=== PATIENT | female | born 1995 | race Caucasian/White ===

== ENCOUNTER 2017-02-10 01:40 | Emergency (ER) | payer MEDICAID ==
[~2017-02-10] VITALS: Ht 160 cm; Wt 75.0 kg
[~2017-02-10 01:40] MED LIST: CHOL2000 PO; DOXE3TAB3 PO; LACO50TA PO; LAMO200T49 PO; LAMO300T2 PO; LEVE500T53 PO; LITH450T PO; MELO7.5T31 PO; NITR100C56 PO; NORE0.357 PO; OMEG1CAP23 PO; TAUR500C PO; TRAZ100T15 PO
[2017-02-10 02:35] LABS: PATH.CAST-FLAG NOT PRESENT; SPERM-FLAG NOT PRESENT; SRC-FLAG NOT PRESENT; XTAL-FLAG NOT PRESENT; YLC-FLAG NOT PRESENT
[2017-02-10 02:36] LABS: ASPARTATE AMINO TRANSFERASE 12 U/L (15-37); BLOOD UREA NITROGEN 12 mg/dL (7-18)
[2017-02-10 03:24] LABS: HEMATOCRIT 41.3 % (34.6-47.8); HEMOGLOBIN 13.8 g/dL (11.7-16.4); WHITE BLOOD COUNT 7.5 x10^3/uL (3.4-10)
[2017-02-10 03:26] VITALS: BP 124/60
== END 2017-02-10 03:54 | disposition home or self-care (01) ==
LOC: ED 02:02
DX: F51.01 Primary insomnia (principal)
CPT/HCPCS: 36415; 80053; 81001; 84703; 85025; 87086; 99284

== ENCOUNTER 2017-06-30 04:29 | Inpatient (IN) | payer MEDICAID ==
[~2017-06-30] VITALS: Ht 167.6 cm; Wt 86.8 kg
[2017-06-30] MEDS ORDERED: SUVO10TA PO (05:21)
[2017-06-30] MEDS ORDERED: OXCA300T PO (05:22)
[2017-06-30] MEDS ORDERED: L-NO1TBD18 PO (05:23)
[2017-06-30] MEDS ORDERED: LORazepam 2 MG/ML, 1ML ONE (05:57)
[2017-06-30] MEDS ORDERED: LORazepam 2 MG/ML, 1ML IVPush ONE (06:30)
[2017-06-30] MEDS ORDERED: SODIUM CHLORIDE 0.9% 1,000 ML IV ONE (07:58)
[2017-06-30] MEDS ORDERED: PHENYTOIN SODIUM 1,500 MG in SODIUM CHLORIDE 0.9% 100 ML IV ONE (08:00)
[2017-06-30] MEDS ORDERED: SODIUM CHLORIDE FLUSH 10ML SYR IVF ONE (08:00)
[2017-06-30] MEDS ORDERED: FILTER 0.22 MICRON IV ONE (08:30)
[2017-06-30 08:36] LABS: BASOPHILS # (AUTO) 0.03 x10^3/uL (0-0.1); BASOPHILS % (AUTO) 0 % (0-1); EOSINOPHILS # (AUTO) 0.06 x10^3/uL (0-0.4); EOSINOPHILS % (AUTO) 1 % (1-7); LYMPHOCYTES # (AUTO) 1.45 x10^3/uL (1-3.4); LYMPHOCYTES % (AUTO) 15 % (22-44); MD NO; MEAN CORPUSCULAR HGB CONC 34.3 g/dL (32.4-35.8); MEAN CORPUSCULAR VOLUME 90.5 fL (80-100); MEAN PLATELET VOLUME 7.3 fL (7.4-10.4); MONOCYTES # (AUTO) 0.63 x10^3/uL (0.2-0.8); MONOCYTES % (AUTO) 7 % (2-9); NEUTROPHILS # (AUTO) 7.41 x10^3/uL (1.8-6.8); NEUTROPHILS % (AUTO) 77 % (42-75); PLATELET COUNT 321 x10^3/uL (130-400); RED CELL DISTRIBUTION WIDTH 12.2 % (9.6-15.2)
[2017-06-30 08:40] LABS: ALANINE AMINOTRANSFERASE 25 U/L (12-78); ALBUMIN 3.6 g/dL (3.4-5.0); ANION GAP 9 mmol/L (5-15); CALCIUM 8.3 mg/dL (8.5-10.1); CHLORIDE 108 mmol/L (98-107); CREATININE 0.63 mg/dL (0.55-1.02); SALICYLATE LEVEL < 1.7 mg/dL (2.8-20.0)
[2017-06-30 08:45] LABS: ACETAMINOPHEN < 2 mcg/mL (10-30); ALKALINE PHOSPHATASE 82 U/L (45-117); BILIRUBIN,TOTAL 0.2 mg/dL (0.2-1.0); TOTAL PROTEIN 7.2 g/dL (6.4-8.2); TROPONIN I < 0.015 ng/mL (0.000-0.045)
[2017-06-30 10:01] LABS: HCG UR SG 1.019 (1.003-1.030); MICROSCOPIC AUTO
[2017-06-30 10:03] LABS: CULTURE INDICATED? YES
[2017-06-30 10:14] LABS: AMPHETAMINE SCREEN, URINE Negative (Negative); BARBITURATE SCREEN, URINE Negative (Negative); BENZODIAZEPINE SCREEN, URINE Negative (Negative); CANNABINOID SCREEN, URINE Negative (Negative); COCAINE SCREEN, URINE Negative (Negative); METHADONE SCREEN, URINE Negative (Negative); OPIATE SCREEN, URINE Negative (Negative)
[2017-06-30] MEDS ORDERED: ONDANSETRON 2MG/ML, 2ML IVPush PRN (10:30)
[2017-06-30] MEDS ORDERED: ACETAMINOPHEN 325 MG TABLET ONE (12:11)
[2017-06-30] MEDS ORDERED: ENOXAPARIN 40 MG/0.4 ML ONE (12:11)
[2017-06-30] MEDS: ENOXAPARIN 40 MG/0.4 ML SQ SCH (12:16)
[2017-06-30] MEDS: ACETAMINOPHEN 325 MG TABLET PO PRN ×2 (12:17→21:11)
[2017-06-30 14:54] VITALS: BP 112/71
[2017-06-30 15:57] VITALS: BP 106/68
[2017-06-30 18:45] VITALS: BP 115/73
[2017-06-30] MEDS ORDERED: SUVOREXANT HOMEMEDPO PRN (21:00)
[2017-06-30] MEDS: SODIUM CHLORIDE FLUSH 10ML SYR IVF SCH (21:11)
[2017-07-01] VITALS (10 sets, daily range): BP systolic 109–138; BP diastolic 65–82
[2017-07-01] MEDS ORDERED: IBUPROFEN 200 MG TABLET PO ONE (01:00)
[2017-07-01] MEDS: ACETAMINOPHEN 325 MG TABLET PO PRN ×2 (02:35→13:52)
[2017-07-01 05:52] LABS: BASOPHILS # (AUTO) 0.04 x10^3/uL (0-0.1); BASOPHILS % (AUTO) 1 % (0-1); EOSINOPHILS # (AUTO) 0.06 x10^3/uL (0-0.4); EOSINOPHILS % (AUTO) 1 % (1-7); LYMPHOCYTES # (AUTO) 1.65 x10^3/uL (1-3.4); LYMPHOCYTES % (AUTO) 22 % (22-44); MD NO; MEAN CORPUSCULAR HEMOGLOBIN 31.1 pg (27.0-34.8); MEAN CORPUSCULAR HGB CONC 34.1 g/dL (32.4-35.8); MEAN CORPUSCULAR VOLUME 91.3 fL (80-100); MEAN PLATELET VOLUME 7.3 fL (7.4-10.4); MONOCYTES # (AUTO) 0.66 x10^3/uL (0.2-0.8); MONOCYTES % (AUTO) 9 % (2-9); NEUTROPHILS # (AUTO) 5.25 x10^3/uL (1.8-6.8); NEUTROPHILS % (AUTO) 69 % (42-75); PLATELET COUNT 310 x10^3/uL (130-400); RED BLOOD COUNT 5.03 x10^6/uL (3.82-5.3); RED CELL DISTRIBUTION WIDTH 11.9 % (9.6-15.2)
[2017-07-01 06:07] LABS: ALBUMIN 3.7 g/dL (3.4-5.0); ANION GAP 9 mmol/L (5-15); CALCIUM 9.3 mg/dL (8.5-10.1); CHLORIDE 109 mmol/L (98-107)
[2017-07-01 06:12] LABS: ALANINE AMINOTRANSFERASE 27 U/L (12-78); ALKALINE PHOSPHATASE 93 U/L (45-117); BILIRUBIN,TOTAL 0.2 mg/dL (0.2-1.0); CREATININE 0.54 mg/dL (0.55-1.02); TOTAL PROTEIN 7.6 g/dL (6.4-8.2)
[2017-07-01] MEDS: E ESTRADIOL E ESTRAD HOMEMEDPO SCH (11:43)
[2017-07-01] MEDS: NORGEST HOMEMEDPO SCH (11:43)
[2017-07-01] MEDS: SODIUM CHLORIDE FLUSH 10ML SYR IVF SCH ×2 (11:43→23:53)
[2017-07-01] MEDS: ENOXAPARIN 40 MG/0.4 ML SQ SCH (11:49)
[2017-07-01] MEDS ORDERED: LACO100T PO (18:14)
[2017-07-01] MEDS ORDERED: LACO200T PO (18:14)
[2017-07-01] MEDS ORDERED: OXCARBAZEPINE 150 MG TABLET PO SCH (21:00)
[2017-07-02 00:18] VITALS: BP 115/74
[2017-07-02 00:51] VITALS: BP 115/72
[2017-07-02] MEDS: ACETAMINOPHEN 325 MG TABLET PO PRN ×2 (01:42→10:01)
[2017-07-02 07:32] VITALS: BP 109/64
[2017-07-02] MEDS ORDERED: OXCARBAZEPINE 150 MG TABLET PO SCH (09:00)
[2017-07-02] MEDS ORDERED: LACOSAMIDE 50 MG TABLET PO SCH ×2 (09:48→21:00)
[2017-07-02] MEDS: E ESTRADIOL E ESTRAD HOMEMEDPO SCH (10:02)
[2017-07-02] MEDS: NORGEST HOMEMEDPO SCH (10:02)
[2017-07-02] MEDS: ENOXAPARIN 40 MG/0.4 ML SQ SCH (10:03)
[2017-07-02] MEDS: SODIUM CHLORIDE FLUSH 10ML SYR IVF SCH (10:03)
[2017-07-02 14:35] VITALS: BP 129/77
== END 2017-07-02 17:10 | disposition home or self-care (01) | DRG 101 ==
LOC: ED 06:01 → 3NE 09:50 → UNDOADMOB 09:51 → INTOOBSV 09:51 → EDIP 09:51 → OBSVTOIN 09:52 → INTOOBSV 09:52 → EDIP 14:40 → 3NE 14:40
PROVIDERS: ADMIT Internal Medicine; ATTEND Internal Medicine
PROC: 0T9B70Z Drainage of Bladder with Drainage Device, Via Natural or Artificial Opening (ICD-10-PCS; principal; 2017-06-30)
DX: G40.901 Epilepsy, unspecified, not intractable, with status epilepticus (principal); F31.9 Bipolar disorder, unspecified; W18.39XA Other fall on same level, initial encounter; Z88.8 Allergy status to other drugs, medicaments and biological substances; Z91.018 Allergy to other foods; F51.3 Sleepwalking [somnambulism]; R32 Unspecified urinary incontinence; R62.7 Adult failure to thrive; Y93.89 Activity, other specified; Y92.89 Other specified places as the place of occurrence of the external cause; Y99.8 Other external cause status; S00.81XA Abrasion of other part of head, initial encounter; Z91.5 Personal history of self-harm
CPT/HCPCS: 36415; 70450; 71045; 72125; 80053; 80183; 80185; 80186; 80307; 80329; 80339; 81001; 81025; 82140; 83605; 84484; 85025; 87086; 93005; 95812; 95816; J1165; J1650; G0378; G0480; J2060; J7030

== ENCOUNTER 2017-07-02 22:52 | Emergency (ER) | payer MEDICAID ==
[~2017-07-02] VITALS: Ht 167.6 cm; Wt 82.7 kg
[~2017-07-02 22:52] MED LIST changes: +L-NO1TBD18 PO; +LACO100T PO; +LACO200T PO; +OXCA300T PO; +SUVO10TA PO
[2017-07-02 23:04] VITALS: BP 118/75
== END 2017-07-03 00:22 | disposition home or self-care (01) ==
LOC: ED 23:25
DX: L24.9 Irritant contact dermatitis, unspecified cause (principal); G40.909 Epilepsy, unspecified, not intractable, without status epilepticus; F31.9 Bipolar disorder, unspecified
CPT/HCPCS: 99283

== ENCOUNTER 2017-07-04 20:26 | Inpatient (IN) | payer MEDICAID ==
[~2017-07-04] VITALS: Ht 162.6 cm; Wt 80.3 kg
[2017-07-04 21:21] LABS: MICROSCOPIC INDICATED
[2017-07-04 21:22] LABS: BASOPHILS # (AUTO) 0.03 x10^3/uL (0-0.1); BASOPHILS % (AUTO) 0 % (0-1); EOSINOPHILS # (AUTO) 0.11 x10^3/uL (0-0.4); EOSINOPHILS % (AUTO) 2 % (1-7); LYMPHOCYTES # (AUTO) 2.24 x10^3/uL (1-3.4); LYMPHOCYTES % (AUTO) 35 % (22-44); MD NO; MEAN CORPUSCULAR HEMOGLOBIN 30.2 pg (27.0-34.8); MEAN CORPUSCULAR HGB CONC 33.4 g/dL (32.4-35.8); MEAN CORPUSCULAR VOLUME 90.6 fL (80-100); MEAN PLATELET VOLUME 7.1 fL (7.4-10.4); MONOCYTES # (AUTO) 0.53 x10^3/uL (0.2-0.8); MONOCYTES % (AUTO) 8 % (2-9); NEUTROPHILS # (AUTO) 3.52 x10^3/uL (1.8-6.8); NEUTROPHILS % (AUTO) 55 % (42-75); PLATELET COUNT 332 x10^3/uL (130-400); RED BLOOD COUNT 4.97 x10^6/uL (3.82-5.3); RED CELL DISTRIBUTION WIDTH 12.1 % (9.6-15.2)
[2017-07-04 21:31] LABS: ALBUMIN 3.7 g/dL (3.4-5.0); ANION GAP 8 mmol/L (5-15); CALCIUM 8.9 mg/dL (8.5-10.1); CHLORIDE 105 mmol/L (98-107); CREATININE 0.66 mg/dL (0.55-1.02)
[2017-07-04 21:32] LABS: SALICYLATE LEVEL < 1.7 mg/dL (2.8-20.0)
[2017-07-04 21:37] LABS: ACETAMINOPHEN < 2 mcg/mL (10-30)
[2017-07-04] MEDS ORDERED: ZIPRASIDONE 20 MG INJ IM ONE ×3 (21:56→23:52)
[2017-07-04 21:57] LABS: AMPHETAMINE SCREEN, URINE Negative (Negative); BARBITURATE SCREEN, URINE Negative (Negative); BENZODIAZEPINE SCREEN, URINE Negative (Negative); CANNABINOID SCREEN, URINE Negative (Negative); COCAINE SCREEN, URINE Negative (Negative); METHADONE SCREEN, URINE Negative (Negative); OPIATE SCREEN, URINE Negative (Negative)
[2017-07-04] MEDS ORDERED: SUVOREXANT PO SCH (23:30)
[2017-07-04] MEDS ORDERED: POLYETHYLENE GLYCOL 17 GM PACKET PO PRN (23:30)
[2017-07-04] MEDS ORDERED: POTASSIUM CHLORIDE 20 MEQ TAB.ER.PRT PO ONE (23:30)
[2017-07-04] MEDS: HEPARIN 5,000 UNITS/ML, 1ML SQ SCH (23:30)
[2017-07-04] MEDS ORDERED: ONDANSETRON ODT 4 MG PO PRN (23:30)
[2017-07-04] MEDS ORDERED: BISACODYL 10 MG SUPP PR PRN (23:30)
[2017-07-04] MEDS: SULFAMETH./TRIMETHOPRIM DS 800MG/160MG TABLET PO SCH (23:30)
[2017-07-04] MEDS ORDERED: SULFAMETH./TRIMETHOPRIM DS 800MG/160MG TABLET ONE (23:52)
[2017-07-04] MEDS ORDERED: DIPHENHYDRAMINE 50 MG/ML, 1ML ONE (23:58)
[2017-07-04] MEDS ORDERED: HALOPERIDOL 5 MG/ML ONE (23:58)
[2017-07-04] MEDS ORDERED: LORazepam 2 MG/ML, 1ML ONE (23:59)
[2017-07-05] MEDS: LACOSAMIDE 50 MG TABLET PO SCH ×3 (00:23→21:47)
[2017-07-05] MEDS ORDERED: HALOPERIDOL 5 MG/ML IM PRN (00:30)
[2017-07-05] MEDS ORDERED: LORazepam 2 MG/ML, 1ML IM PRN (00:30)
[2017-07-05] MEDS ORDERED: DIPHENHYDRAMINE 50 MG/ML, 1ML IM ONE (00:30)
[2017-07-05] MEDS ORDERED: HEPARIN 5,000 UNITS/ML, 1ML ONE (07:28)
[2017-07-05] MEDS: HEPARIN 5,000 UNITS/ML, 1ML SQ SCH ×3 (07:33→23:08)
[2017-07-05 07:50] LABS: BASOPHILS # (AUTO) 0.01 x10^3/uL (0-0.1); BASOPHILS % (AUTO) 0 % (0-1); EOSINOPHILS # (AUTO) 0.09 x10^3/uL (0-0.4); EOSINOPHILS % (AUTO) 2 % (1-7); LYMPHOCYTES # (AUTO) 1.68 x10^3/uL (1-3.4); LYMPHOCYTES % (AUTO) 28 % (22-44); MD NO; MEAN CORPUSCULAR HEMOGLOBIN 30.7 pg (27.0-34.8); MEAN CORPUSCULAR HGB CONC 34.1 g/dL (32.4-35.8); MEAN PLATELET VOLUME 7.1 fL (7.4-10.4); MONOCYTES # (AUTO) 0.63 x10^3/uL (0.2-0.8); MONOCYTES % (AUTO) 11 % (2-9); NEUTROPHILS % (AUTO) 60 % (42-75); PLATELET COUNT 308 x10^3/uL (130-400); RED BLOOD COUNT 5.14 x10^6/uL (3.82-5.3); RED CELL DISTRIBUTION WIDTH 11.8 % (9.6-15.2)
[2017-07-05 08:03] LABS: ALANINE AMINOTRANSFERASE 31 U/L (12-78); ALBUMIN 3.6 g/dL (3.4-5.0); ANION GAP 8 mmol/L (5-15); CALCIUM 8.4 mg/dL (8.5-10.1); CHLORIDE 109 mmol/L (98-107); CREATININE 0.64 mg/dL (0.55-1.02)
[2017-07-05 08:06] LABS: ALKALINE PHOSPHATASE 88 U/L (45-117); BILIRUBIN,TOTAL 0.3 mg/dL (0.2-1.0); TOTAL PROTEIN 7.3 g/dL (6.4-8.2)
[2017-07-05] MEDS: NORGESTIMATE-ETHINYL ESTRADIOL TABLET PO SCH (09:00)
[2017-07-05] MEDS: SULFAMETH./TRIMETHOPRIM DS 800MG/160MG TABLET PO SCH ×2 (09:19→21:47)
[2017-07-05] MEDS: SENNA/DOCUSATE TABLET PO SCH (09:19)
[2017-07-05] MEDS ORDERED: LORazepam 2 MG/ML, 1ML ONE (11:05)
[2017-07-05] MEDS ORDERED: LORazepam 2 MG/ML, 1ML IVPush ONE (11:30)
[2017-07-05 14:20] VITALS: BP 131/77
[2017-07-05] MEDS: OXCARBAZEPINE 150 MG TABLET PO SCH ×2 (14:51→19:38)
[2017-07-05] MEDS: LORazepam 2 MG/ML, 1ML IVPush PRN (18:55)
[2017-07-05 19:33] VITALS: BP 157/82
[2017-07-06 01:03] VITALS: BP 147/86
[2017-07-06 02:07] VITALS: BP 145/84
[2017-07-06] MEDS: ZOLPIDEM 5MG TABLET PO PRN (02:35)
[2017-07-06 06:35] VITALS: BP 135/81
[2017-07-06] MEDS: HEPARIN 5,000 UNITS/ML, 1ML SQ SCH ×3 (08:09→23:30)
[2017-07-06] MEDS: SENNA/DOCUSATE TABLET PO SCH (08:09)
[2017-07-06] MEDS: SULFAMETH./TRIMETHOPRIM DS 800MG/160MG TABLET PO SCH ×2 (08:09→21:20)
[2017-07-06] MEDS: NORGESTIMATE-ETHINYL ESTRADIOL TABLET PO SCH (08:10)
[2017-07-06] MEDS: OXCARBAZEPINE 150 MG TABLET PO SCH ×2 (08:10→21:24)
[2017-07-06] MEDS: ACETAMINOPHEN 325 MG TABLET PO PRN (08:10)
[2017-07-06] MEDS: LACOSAMIDE 50 MG TABLET PO SCH ×2 (08:10→21:20)
[2017-07-06 13:33] VITALS: BP 146/81
[2017-07-06 20:00] VITALS: BP 127/76
[2017-07-07] MEDS: ZOLPIDEM 5MG TABLET PO PRN (00:28)
[2017-07-07 01:39] VITALS: BP 149/74
[2017-07-07 06:33] VITALS: BP 126/79
[2017-07-07 07:01] LABS: ANION GAP 9 mmol/L (5-15); CALCIUM 8.5 mg/dL (8.5-10.1); CHLORIDE 104 mmol/L (98-107); CREATININE 0.63 mg/dL (0.55-1.02)
[2017-07-07 07:18] LABS: BASOPHILS # (AUTO) 0.03 x10^3/uL (0-0.1); BASOPHILS % (AUTO) 0 % (0-1); EOSINOPHILS # (AUTO) 0.06 x10^3/uL (0-0.4); EOSINOPHILS % (AUTO) 1 % (1-7); LYMPHOCYTES # (AUTO) 2.17 x10^3/uL (1-3.4); LYMPHOCYTES % (AUTO) 29 % (22-44); MD NO; MEAN CORPUSCULAR HEMOGLOBIN 30.7 pg (27.0-34.8); MEAN CORPUSCULAR HGB CONC 33.8 g/dL (32.4-35.8); MEAN CORPUSCULAR VOLUME 90.8 fL (80-100); MEAN PLATELET VOLUME 7.1 fL (7.4-10.4); MONOCYTES # (AUTO) 0.72 x10^3/uL (0.2-0.8); MONOCYTES % (AUTO) 10 % (2-9); NEUTROPHILS % (AUTO) 60 % (42-75); PLATELET COUNT 302 x10^3/uL (130-400); RED CELL DISTRIBUTION WIDTH 12.1 % (9.6-15.2)
[2017-07-07] MEDS ORDERED: IBUPROFEN 200 MG TABLET PO PRN (08:30)
[2017-07-07] MEDS: NORGESTIMATE-ETHINYL ESTRADIOL TABLET PO SCH (09:00)
[2017-07-07] MEDS: SULFAMETH./TRIMETHOPRIM DS 800MG/160MG TABLET PO SCH ×2 (09:48→21:44)
[2017-07-07] MEDS: OXCARBAZEPINE 150 MG TABLET PO SCH ×2 (09:48→21:44)
[2017-07-07] MEDS: SENNA/DOCUSATE TABLET PO SCH (09:49)
[2017-07-07] MEDS: HEPARIN 5,000 UNITS/ML, 1ML SQ SCH ×3 (09:49→23:30)
[2017-07-07] MEDS: LACOSAMIDE 50 MG TABLET PO SCH ×2 (09:52→21:44)
[2017-07-07 12:08] VITALS: BP 124/73
[2017-07-07 16:02] LABS: CLOSTRIDIUM DIFFICILE ANTIGEN NEGATIVE; CLOSTRIDIUM DIFFICILE TOXIN NEGATIVE (Negative)
[2017-07-07] MEDS: ACETAMINOPHEN 325 MG TABLET PO PRN (16:06)
[2017-07-07 20:10] VITALS: BP 115/71
[2017-07-07] MEDS: OLANZAPINE 2.5 MG TABLET PO SCH (21:44)
[2017-07-08 05:46] VITALS: BP 106/69
[2017-07-08 08:02] VITALS: BP 119/76
[2017-07-08] MEDS: SENNA/DOCUSATE TABLET PO SCH (09:00)
[2017-07-08] MEDS: NORGESTIMATE-ETHINYL ESTRADIOL TABLET PO SCH ×2 (09:00→11:52)
[2017-07-08] MEDS: HEPARIN 5,000 UNITS/ML, 1ML SQ SCH ×2 (11:03→18:19)
[2017-07-08] MEDS: OXCARBAZEPINE 150 MG TABLET PO SCH ×2 (11:51→20:25)
[2017-07-08] MEDS: SULFAMETH./TRIMETHOPRIM DS 800MG/160MG TABLET PO SCH (11:51)
[2017-07-08] MEDS: LACOSAMIDE 50 MG TABLET PO SCH ×2 (11:52→20:26)
[2017-07-08 13:26] VITALS: BP 111/75
[2017-07-08] MEDS: OLANZAPINE 2.5 MG TABLET PO SCH (20:26)
[2017-07-08 20:40] VITALS: BP 106/68
[2017-07-08] MEDS ORDERED: SULFAMETH./TRIMETHOPRIM DS 800MG/160MG TABLET PO SCH (21:00)
[2017-07-08] MEDS: ACETAMINOPHEN 325 MG TABLET PO PRN (22:44)
[2017-07-09 02:00] VITALS: BP 115/71
[2017-07-09] MEDS: HEPARIN 5,000 UNITS/ML, 1ML SQ SCH ×3 (03:00→18:34)
[2017-07-09 08:15] VITALS: BP 110/74
[2017-07-09] MEDS: SENNA/DOCUSATE TABLET PO SCH (09:00)
[2017-07-09] MEDS: LORazepam 2 MG/ML, 1ML IVPush PRN (09:42)
[2017-07-09] MEDS: OXCARBAZEPINE 150 MG TABLET PO SCH ×2 (09:43→20:21)
[2017-07-09] MEDS: LACOSAMIDE 50 MG TABLET PO SCH ×2 (09:43→20:22)
[2017-07-09] MEDS: NORGESTIMATE-ETHINYL ESTRADIOL TABLET PO SCH (09:43)
[2017-07-09 14:08] VITALS: BP 114/81
[2017-07-09 19:40] VITALS: BP 111/69
[2017-07-09] MEDS: LAMOTRIGINE 25 MG TABLET PO SCH (20:21)
[2017-07-09] MEDS: OLANZAPINE 5 MG TABLET PO SCH (20:21)
[2017-07-10 02:38] VITALS: BP 104/66
[2017-07-10] MEDS: HEPARIN 5,000 UNITS/ML, 1ML SQ SCH ×3 (02:38→20:07)
[2017-07-10 06:38] VITALS: BP 114/73
[2017-07-10] MEDS: NORGESTIMATE-ETHINYL ESTRADIOL TABLET PO SCH (09:00)
[2017-07-10] MEDS: SENNA/DOCUSATE TABLET PO SCH (09:00)
[2017-07-10] MEDS: OXCARBAZEPINE 150 MG TABLET PO SCH ×2 (09:49→20:08)
[2017-07-10] MEDS: LAMOTRIGINE 25 MG TABLET PO SCH ×2 (09:49→20:07)
[2017-07-10] MEDS: LACOSAMIDE 50 MG TABLET PO SCH ×2 (09:49→20:08)
[2017-07-10 12:30] VITALS: BP 99/69
[2017-07-10 19:50] VITALS: BP 121/70
[2017-07-10] MEDS: OLANZAPINE 5 MG TABLET PO SCH (20:08)
[2017-07-11 02:30] VITALS: BP 106/60
[2017-07-11] MEDS: HEPARIN 5,000 UNITS/ML, 1ML SQ SCH ×2 (04:33→13:46)
[2017-07-11 06:40] VITALS: BP 91/55
[2017-07-11] MEDS: NORGESTIMATE-ETHINYL ESTRADIOL TABLET PO SCH (09:00)
[2017-07-11] MEDS: OXCARBAZEPINE 150 MG TABLET PO SCH (10:26)
[2017-07-11] MEDS: LAMOTRIGINE 25 MG TABLET PO SCH (10:27)
[2017-07-11] MEDS: LACOSAMIDE 50 MG TABLET PO SCH (10:27)
[2017-07-11] MEDS: SENNA/DOCUSATE TABLET PO SCH (10:27)
[2017-07-11 13:22] VITALS: BP 108/74
[2017-07-11] MEDS ORDERED: OLAN5TAB9 PO (15:08)
[2017-07-11] MEDS ORDERED: LACO50TA PO ×2 (15:08)
[2017-07-11] MEDS ORDERED: OXCA150T PO (15:08)
[2017-07-11] MEDS ORDERED: LAMO25TA PO (15:08)
== END 2017-07-11 22:02 | disposition home or self-care (01) | DRG 690 ==
LOC: ED 20:50 → EDIP 23:20 → OBSVTOIN 07-05 12:09 → 4WST 07-05 14:16 → 4EST 07-05 21:23
PROVIDERS: ADMIT Internal Medicine; ATTEND Internal Medicine
DX: N39.0 Urinary tract infection, site not specified (principal); R45.851 Suicidal ideations; R45.850 Homicidal ideations; W18.30XA Fall on same level, unspecified, initial encounter; B96.20 Unspecified Escherichia coli [E. coli] as the cause of diseases classified elsewhere; E87.6 Hypokalemia; F29 Unspecified psychosis not due to a substance or known physiological condition; F31.9 Bipolar disorder, unspecified; F41.9 Anxiety disorder, unspecified; F79 Unspecified intellectual disabilities; G40.909 Epilepsy, unspecified, not intractable, without status epilepticus; G47.00 Insomnia, unspecified; R32 Unspecified urinary incontinence; Z91.14 Patient's other noncompliance with medication regimen; Z79.899 Other long term (current) drug therapy; S00.81XA Abrasion of other part of head, initial encounter; Y93.89 Activity, other specified; Y92.89 Other specified places as the place of occurrence of the external cause; Y99.8 Other external cause status
CPT/HCPCS: 36415; 80048; 80053; 80307; 80329; 81001; 82040; 82962; 83735; 84100; 84703; 85025; 87040; 87077; 87086; 87186; 87324; 95819; 96372; 96374; G0378; J1644; J3486; Q0162; G0480; J1200; J1630; J2060

== ENCOUNTER 2017-07-24 20:36 | Emergency (ER) | payer MEDICAID ==
[~2017-07-24] VITALS: Ht 162.6 cm; Wt 75.0 kg
[~2017-07-24 20:36] MED LIST changes: +LAMO25TA PO; +OLAN5TAB9 PO; +OXCA150T PO
[2017-07-24 21:51] LABS: BASOPHILS # (AUTO) 0.05 x10^3/uL (0-0.1); BASOPHILS % (AUTO) 1 % (0-1); EOSINOPHILS # (AUTO) 0.05 x10^3/uL (0-0.4); EOSINOPHILS % (AUTO) 1 % (1-7); LYMPHOCYTES # (AUTO) 1.68 x10^3/uL (1-3.4); LYMPHOCYTES % (AUTO) 20 % (22-44); MD NO; MEAN CORPUSCULAR HEMOGLOBIN 30.5 pg (27.0-34.8); MEAN CORPUSCULAR HGB CONC 33.8 g/dL (32.4-35.8); MEAN CORPUSCULAR VOLUME 90.2 fL (80-100); MEAN PLATELET VOLUME 6.9 fL (7.4-10.4); MONOCYTES # (AUTO) 0.44 x10^3/uL (0.2-0.8); MONOCYTES % (AUTO) 5 % (2-9); NEUTROPHILS # (AUTO) 6.04 x10^3/uL (1.8-6.8); NEUTROPHILS % (AUTO) 73 % (42-75); PLATELET COUNT 392 x10^3/uL (130-400); RED BLOOD COUNT 4.57 x10^6/uL (3.82-5.3); RED CELL DISTRIBUTION WIDTH 11.7 % (9.6-15.2)
[2017-07-24 22:00] LABS: ANION GAP 8 mmol/L (5-15); CALCIUM 8.1 mg/dL (8.5-10.1); CHLORIDE 103 mmol/L (98-107); CREATININE 0.54 mg/dL (0.55-1.02)
[2017-07-24 22:53] VITALS: BP 120/52
== END 2017-07-24 22:55 | disposition home or self-care (01) ==
LOC: ED 21:35
DX: G40.909 Epilepsy, unspecified, not intractable, without status epilepticus (principal)
CPT/HCPCS: 36415; 80048; 85025; 99284

== ENCOUNTER 2017-08-26 22:49 | Emergency (ER) | payer MEDICAID ==
[~2017-08-26] VITALS: Ht 157.5 cm; Wt 80.0 kg
[2017-08-26 23:25] LABS: BASOPHILS # (AUTO) 0.09 x10^3/uL (0-0.1); BASOPHILS % (AUTO) 1 % (0-1); EOSINOPHILS # (AUTO) 0.21 x10^3/uL (0-0.4); EOSINOPHILS % (AUTO) 2 % (1-7); LYMPHOCYTES # (AUTO) 2.81 x10^3/uL (1-3.4); LYMPHOCYTES % (AUTO) 29 % (22-44); MD NO; MEAN CORPUSCULAR HEMOGLOBIN 30.4 pg (27.0-34.8); MEAN CORPUSCULAR HGB CONC 33.6 g/dL (32.4-35.8); MEAN CORPUSCULAR VOLUME 90.5 fL (80-100); MEAN PLATELET VOLUME 6.7 fL (7.4-10.4); MONOCYTES # (AUTO) 0.89 x10^3/uL (0.2-0.8); MONOCYTES % (AUTO) 9 % (2-9); NEUTROPHILS # (AUTO) 5.86 x10^3/uL (1.8-6.8); NEUTROPHILS % (AUTO) 60 % (42-75); PLATELET COUNT 381 x10^3/uL (130-400); RED BLOOD COUNT 4.98 x10^6/uL (3.82-5.3); RED CELL DISTRIBUTION WIDTH 11.9 % (9.6-15.2)
[2017-08-26 23:35] LABS: ANION GAP 9 mmol/L (5-15); CHLORIDE 102 mmol/L (98-107); CREATININE 0.76 mg/dL (0.55-1.02)
[2017-08-27] MEDS ORDERED: MECLIZINE CHEWABLE 25 MG TAB PO ONE
[2017-08-27] MEDS ORDERED: MECLIZINE CHEWABLE 25 MG TAB ONE (00:11)
[2017-08-27 00:16] VITALS: BP 127/57
== END 2017-08-27 00:18 | disposition home or self-care (01) ==
LOC: ED 23:59
DX: R42 Dizziness and giddiness (principal); F44.5 Conversion disorder with seizures or convulsions
CPT/HCPCS: 36415; 80048; 82040; 84703; 85025; 93005; 99285

== ENCOUNTER 2017-11-04 22:30 | Emergency (ER) | payer MEDICAID ==
[~2017-11-04] VITALS: Ht 167.6 cm; Wt 90.1 kg
[~2017-11-04 22:30] MED LIST changes: +LORA1TAB PO
[2017-11-04 23:09] VITALS: BP 118/83
== END 2017-11-04 23:57 | disposition home or self-care (01) ==
LOC: ED 23:51
DX: R45.1 Restlessness and agitation (principal); F31.9 Bipolar disorder, unspecified; F79 Unspecified intellectual disabilities; F84.0 Autistic disorder
CPT/HCPCS: 99283

== ENCOUNTER 2018-01-01 03:30 | Emergency (ER) | payer MEDICAID ==
[~2018-01-01] VITALS: Ht 167.6 cm; Wt 86.8 kg
[2018-01-01 03:34] VITALS: BP 116/68
== END 2018-01-01 04:24 | disposition home or self-care (01) ==
LOC: ED 03:35
DX: S40.812A Abrasion of left upper arm, initial encounter (principal); F31.9 Bipolar disorder, unspecified; G40.909 Epilepsy, unspecified, not intractable, without status epilepticus; X58.XXXA Exposure to other specified factors, initial encounter; Y93.89 Activity, other specified; Y92.89 Other specified places as the place of occurrence of the external cause; Y99.8 Other external cause status
CPT/HCPCS: 99283

== ENCOUNTER 2018-01-11 21:56 | Emergency (ER) | payer MEDICAID ==
[~2018-01-11] VITALS: Ht 172.7 cm; Wt 87.5 kg
[2018-01-11] MEDS ORDERED: DIPH,PERTUSS(ACELL),TET VAC/PF 0.5 ML IM-VACC ONE ×2 (22:30→22:34)
[2018-01-11] MEDS ORDERED: LIDOCAINE-MPF 2% ,5ML SQ ONE (22:30)
[2018-01-11] MEDS ORDERED: LIDOCAINE-MPF 2% ,5ML ONE ×2 (22:34→23:50)
[2018-01-11] MEDS ORDERED: BACITRACIN ZINC OINT 500U/GM, 0.9 GM ONE (23:51)
[2018-01-12 00:23] VITALS: BP 113/61
== END 2018-01-12 00:25 | disposition home or self-care (01) ==
LOC: ED 23:59
DX: S81.012A Laceration without foreign body, left knee, initial encounter (principal); F31.9 Bipolar disorder, unspecified; X58.XXXA Exposure to other specified factors, initial encounter; Y93.89 Activity, other specified; Y99.8 Other external cause status; Y92.89 Other specified places as the place of occurrence of the external cause
CPT/HCPCS: 13121; 90471; 90715; 99285

== ENCOUNTER 2018-04-12 14:47 | Emergency (ER) | payer MEDICAID ==
[~2018-04-12] VITALS: Ht 152.4 cm; Wt 70.0 kg
[~2018-04-12 14:47] MED LIST changes: -OXCA150T PO; +OXCA150T18 PO; -OXCA300T PO; +OXCA300T19 PO; +TRAZ-137 PO; -TRAZ100T15 PO
[2018-04-12 16:01] LABS: BASOPHILS # (AUTO) 0.04 x10^3/uL (0-0.1); BASOPHILS % (AUTO) 1 % (0-1); EOSINOPHILS # (AUTO) 0.04 x10^3/uL (0-0.4); EOSINOPHILS % (AUTO) 0 % (1-7); LYMPHOCYTES # (AUTO) 1.43 x10^3/uL (1-3.4); LYMPHOCYTES % (AUTO) 17 % (22-44); MD NO; MEAN CORPUSCULAR HEMOGLOBIN 31.1 pg (27.0-34.8); MEAN CORPUSCULAR HGB CONC 34.4 g/dL (32.4-35.8); MEAN CORPUSCULAR VOLUME 90.4 fL (80-100); MEAN PLATELET VOLUME 6.7 fL (7.4-10.4); MONOCYTES # (AUTO) 0.56 x10^3/uL (0.2-0.8); MONOCYTES % (AUTO) 7 % (2-9); NEUTROPHILS # (AUTO) 6.48 x10^3/uL (1.8-6.8); NEUTROPHILS % (AUTO) 76 % (42-75); PLATELET COUNT 316 x10^3/uL (130-400); RED BLOOD COUNT 4.66 x10^6/uL (3.82-5.3); RED CELL DISTRIBUTION WIDTH 11.8 % (9.6-15.2)
[2018-04-12 16:12] LABS: ALBUMIN 3.6 g/dL (3.4-5.0); ANION GAP 8 mmol/L (5-15); CALCIUM 8.8 mg/dL (8.5-10.1); CHLORIDE 105 mmol/L (98-107)
[2018-04-12 16:16] LABS: ALANINE AMINOTRANSFERASE 24 U/L (12-78); ALKALINE PHOSPHATASE 92 U/L (45-117); BILIRUBIN,TOTAL 0.2 mg/dL (0.2-1.0); CREATININE 0.68 mg/dL (0.55-1.02); TOTAL PROTEIN 7.3 g/dL (6.4-8.2)
[2018-04-12 16:17] LABS: ACETAMINOPHEN < 2 mcg/mL (10-30)
[2018-04-12 16:27] VITALS: BP 146/82
[2018-04-12 18:16] LABS: HCG UR SG 1.026 (1.003-1.030)
[2018-04-12 18:28] LABS: AMPHETAMINE SCREEN, URINE Negative (Negative); BARBITURATE SCREEN, URINE Negative (Negative); BENZODIAZEPINE SCREEN, URINE Positive (Negative); CANNABINOID SCREEN, URINE Negative (Negative); COCAINE SCREEN, URINE Negative (Negative); METHADONE SCREEN, URINE Negative (Negative); OPIATE SCREEN, URINE Negative (Negative)
[2018-04-12] MEDS ORDERED: APIX5TAB PO (19:02)
== END 2018-04-12 23:15 | disposition home or self-care (01) ==
LOC: ED 19:39
DX: R45.851 Suicidal ideations (principal); Z00.01 Encounter for general adult medical examination with abnormal findings; F20.9 Schizophrenia, unspecified
CPT/HCPCS: 36415; 80053; 80307; 80329; 81025; 85025; 99284; G0480

== ENCOUNTER 2018-04-30 20:35 | Emergency (ER) | payer OTHER, MEDICAID ==
[~2018-04-30 20:35] MED LIST changes: +APIX5TAB PO
[2018-04-30 21:22] LABS: BASOPHILS # (AUTO) 0.03 x10^3/uL (0-0.1); BASOPHILS % (AUTO) 0 % (0-1); EOSINOPHILS # (AUTO) 0.03 x10^3/uL (0-0.4); EOSINOPHILS % (AUTO) 0 % (1-7); LYMPHOCYTES # (AUTO) 1.64 x10^3/uL (1-3.4); LYMPHOCYTES % (AUTO) 23 % (22-44); MD NO; MEAN CORPUSCULAR HEMOGLOBIN 31.6 pg (27.0-34.8); MEAN CORPUSCULAR HGB CONC 35.1 g/dL (32.4-35.8); MEAN CORPUSCULAR VOLUME 90.1 fL (80-100); MEAN PLATELET VOLUME 6.8 fL (7.4-10.4); MONOCYTES # (AUTO) 0.59 x10^3/uL (0.2-0.8); MONOCYTES % (AUTO) 8 % (2-9); NEUTROPHILS # (AUTO) 4.93 x10^3/uL (1.8-6.8); NEUTROPHILS % (AUTO) 68 % (42-75); PLATELET COUNT 343 x10^3/uL (130-400); RED BLOOD COUNT 4.67 x10^6/uL (3.82-5.3)
[2018-04-30 21:32] LABS: ALBUMIN 3.8 g/dL (3.4-5.0); ANION GAP 10 mmol/L (5-15); CALCIUM 8.9 mg/dL (8.5-10.1); CHLORIDE 110 mmol/L (98-107); CREATININE 0.67 mg/dL (0.55-1.02)
[2018-04-30 23:47] LABS: HCG UR SG 1.037 (1.003-1.030)
[2018-04-30 23:48] LABS: CULTURE INDICATED? YES; MICROSCOPIC INDICATED
[2018-04-30 23:58] LABS: AMPHETAMINE SCREEN, URINE Negative (Negative); BARBITURATE SCREEN, URINE Negative (Negative); BENZODIAZEPINE SCREEN, URINE Negative (Negative); CANNABINOID SCREEN, URINE Negative (Negative); COCAINE SCREEN, URINE Negative (Negative); METHADONE SCREEN, URINE Negative (Negative); OPIATE SCREEN, URINE Negative (Negative)
[2018-05-01 00:10] VITALS: BP 114/60
== END 2018-05-01 00:18 | disposition home or self-care (01) ==
LOC: ED 21:01
DX: F69 Unspecified disorder of adult personality and behavior (principal); I10 Essential (primary) hypertension
CPT/HCPCS: 36415; 80048; 80307; 81001; 81025; 82040; 85025; 87086; 99284

== ENCOUNTER 2018-05-02 11:17 | Emergency (ER) | payer OTHER, MEDICAID ==
[2018-05-02] MEDS ORDERED: LORazepam 1MG TABLET PO ONE (11:30)
[2018-05-02 11:53] LABS: BASOPHILS # (AUTO) 0.03 x10^3/uL (0-0.1); BASOPHILS % (AUTO) 0 % (0-1); EOSINOPHILS # (AUTO) 0.05 x10^3/uL (0-0.4); EOSINOPHILS % (AUTO) 1 % (1-7); LYMPHOCYTES # (AUTO) 1.34 x10^3/uL (1-3.4); LYMPHOCYTES % (AUTO) 15 % (22-44); MD NO; MEAN CORPUSCULAR HEMOGLOBIN 31.1 pg (27.0-34.8); MEAN CORPUSCULAR HGB CONC 34.3 g/dL (32.4-35.8); MEAN CORPUSCULAR VOLUME 90.5 fL (80-100); MEAN PLATELET VOLUME 6.9 fL (7.4-10.4); MONOCYTES # (AUTO) 0.74 x10^3/uL (0.2-0.8); MONOCYTES % (AUTO) 8 % (2-9); NEUTROPHILS # (AUTO) 6.94 x10^3/uL (1.8-6.8); NEUTROPHILS % (AUTO) 76 % (42-75); PLATELET COUNT 332 x10^3/uL (130-400); RED BLOOD COUNT 4.96 x10^6/uL (3.82-5.3); RED CELL DISTRIBUTION WIDTH 12.2 % (9.6-15.2)
[2018-05-02 12:03] LABS: ANION GAP 10 mmol/L (5-15); CALCIUM 9.3 mg/dL (8.5-10.1); CHLORIDE 110 mmol/L (98-107); CREATININE 0.78 mg/dL (0.55-1.02)
[2018-05-02 12:06] LABS: TROPONIN I < 0.015 ng/mL (0.000-0.045)
[2018-05-02 12:07] LABS: INTERNATIONAL NORMALIZED RATIO 1.07 (0.93-1.1); PROTHROMBIN TIME 11.1 Seconds (9.6-11.5)
[2018-05-02 12:12] LABS: ACETAMINOPHEN < 2 mcg/mL (10-30); SALICYLATE LEVEL < 1.7 mg/dL (2.8-20.0)
[2018-05-02 13:09] LABS: MICROSCOPIC INDICATED
[2018-05-02 13:11] LABS: CULTURE INDICATED? NO
[2018-05-02 13:22] LABS: AMPHETAMINE SCREEN, URINE Negative (Negative); BARBITURATE SCREEN, URINE Negative (Negative); BENZODIAZEPINE SCREEN, URINE Negative (Negative); CANNABINOID SCREEN, URINE Negative (Negative); COCAINE SCREEN, URINE Negative (Negative); METHADONE SCREEN, URINE Negative (Negative); OPIATE SCREEN, URINE Negative (Negative)
[2018-05-02 14:10] VITALS: BP 134/78
== END 2018-05-02 14:13 | disposition home or self-care (01) ==
LOC: ED 11:51
DX: G40.409 Other generalized epilepsy and epileptic syndromes, not intractable, without status epilepticus (principal); I10 Essential (primary) hypertension; F31.9 Bipolar disorder, unspecified; R51 Headache
CPT/HCPCS: 36415; 70450; 80048; 80307; 80329; 81001; 82040; 82140; 83605; 84484; 85025; 85610; 93005; 99285; G0480

== ENCOUNTER 2018-05-02 20:53 | Emergency (ER) | payer OTHER, MEDICAID ==
[~2018-05-02] VITALS: Ht 167.6 cm; Wt 80.0 kg
[2018-05-02 20:56] VITALS: BP 115/68
== END 2018-05-02 22:48 | disposition home or self-care (01) ==
LOC: ED 21:32
DX: Z00.8 Encounter for other general examination (principal); G40.909 Epilepsy, unspecified, not intractable, without status epilepticus; F31.9 Bipolar disorder, unspecified; I10 Essential (primary) hypertension; F84.0 Autistic disorder; F79 Unspecified intellectual disabilities
CPT/HCPCS: 99283

== ENCOUNTER 2018-05-12 12:34 | Emergency (ER) | payer MEDICAID, OTHER | END 2018-05-12 13:17 | disposition left against medical advice (07) | LOC: ED 13:11 | DX: M79.602 Pain in left arm (principal); Z53.21 Procedure and treatment not carried out due to patient leaving prior to being seen by health care provider ==

== ENCOUNTER 2018-10-11 18:19 | Inpatient (IN) | payer MEDICAID ==
[~2018-10-11] VITALS: Ht 157.5 cm; Wt 85.9 kg
[~2018-10-11 18:19] MED LIST changes: -LAMO25TA PO; +LAMO25TA9 PO
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
[2018-10-11] MEDS ORDERED: ZIPRASIDONE 20 MG INJ IM ONE (19:00)
--- NOTE | 2018-10-11 19:00 | NUR ---
BEDSIDE REPORT WAS GIVEN. RN MC WAS UPDATED ON THE PLAN OF CARE AND CLOTHING REMOVAL AFTER MEDICATION HAS BEEN ADMINISTERED AND IS WORKING.
--- NOTE | 2018-10-11 19:04 | NUR ---
PT MEDICATED PER MAR. IN 4 POINT RESTRAINTS, SEE RESTRAINT FLOWCHART IN PT'S CHART. MONITORS IN PLACE, CALL LIGHT WITHIN REACH, [facility] STAFF AT BEDSIDE
[2018-10-11] MEDS ORDERED: DOCU100C33 PO (19:08)
[2018-10-11] MEDS ORDERED: BIOT1CAP3 PO (19:15)
[2018-10-11] MEDS ORDERED: OXCA300T19 PO (19:15)
[2018-10-11] MEDS ORDERED: NYST15OI TP (19:15)
[2018-10-11] MEDS ORDERED: LORA1TAB PO (19:15)
[2018-10-11] MEDS ORDERED: LAMO100T PO (19:15)
[2018-10-11] MEDS ORDERED: TRAZ50TA66 PO (19:15)
[2018-10-11] MEDS ORDERED: OLAN10TA9 PO (19:15)
[2018-10-11] MEDS ORDERED: LORA0.5T PO (19:15)
[2018-10-11 19:21] LABS: BASOPHILS # (AUTO) 0.05 x10^3/uL (0-0.1); BASOPHILS % (AUTO) 1 % (0-1); EOSINOPHILS # (AUTO) 0.05 x10^3/uL (0-0.4); EOSINOPHILS % (AUTO) 1 % (1-7); LYMPHOCYTES % (AUTO) 14 % (22-44); MD NO; MEAN CORPUSCULAR HGB CONC 34.7 g/dL (32.4-35.8); MEAN CORPUSCULAR VOLUME 89.3 fL (80-100); MEAN PLATELET VOLUME 6.5 fL (7.4-10.4); MONOCYTES % (AUTO) 5 % (2-9); NEUTROPHILS # (AUTO) 7.59 x10^3/uL (1.8-6.8); NEUTROPHILS % (AUTO) 80 % (42-75); PLATELET COUNT 337 x10^3/uL (130-400)
[2018-10-11 19:32] LABS: ALBUMIN 3.8 g/dL (3.4-5.0); ANION GAP 10 mmol/L (5-15); CALCIUM 8.5 mg/dL (8.5-10.1); CHLORIDE 100 mmol/L (98-107)
[2018-10-11 19:37] LABS: CREATININE 0.71 mg/dL (0.55-1.02)
[2018-10-11 19:40] LABS: SALICYLATE LEVEL < 1.7 mg/dL (2.8-20.0)
[2018-10-11 19:41] LABS: ACETAMINOPHEN < 2 mcg/mL (10-30)
--- NOTE | 2018-10-11 20:30 | NUR ---
PT CALM AND COOPERATIVE, SECURITY AT BEDSIDE TO REMOVED RESTRAINTS, PT UP TO RR WITH STANDBY ASSIST, PROVIDED PT WITH URINE CUP Addendum: 10/11/18 at 2111 by MARIA DEL CARMEN STAFF FROM [facility] AT PT'S BEDSIDE FOR CONTINOUS MONITORING, ROOM SECURED, PT BELONGINGS IN SECURITY LOCKER (1 BAG)
--- NOTE | 2018-10-11 21:12 | NUR ---
PT RESTING WITH EYES CLOSED, NAD, EQUAL CHEST RISE/FALL OBSERVED, [facility] STAFF AT BEDSIDE FOR CONTINOUS MONITORING
[2018-10-11 21:20] LABS: AMPHETAMINE SCREEN, URINE Negative (Negative); BARBITURATE SCREEN, URINE Negative (Negative); BENZODIAZEPINE SCREEN, URINE Negative (Negative); CANNABINOID SCREEN, URINE Negative (Negative); COCAINE SCREEN, URINE Negative (Negative); METHADONE SCREEN, URINE Negative (Negative); OPIATE SCREEN, URINE Negative (Negative)
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
[2018-10-11] MEDS ORDERED: ACETAMINOPHEN 325 MG TABLET PO PRN (21:30)
[2018-10-11] MEDS ORDERED: ZIPRASIDONE 20MG CAPSULE PO PRN (21:30)
[2018-10-11] MEDS ORDERED: POLYETHYLENE GLYCOL 17 GM PACKET PO PRN (21:30)
[2018-10-11] MEDS ORDERED: BISACODYL 10 MG SUPP PR PRN (21:30)
[2018-10-11] MEDS ORDERED: ONDANSETRON ODT 4 MG PO PRN (21:30)
[2018-10-11] MEDS ORDERED: DIPHENHYDRAMINE 50 MG CAPSULE PO PRN (21:30)
[2018-10-11] MEDS ORDERED: LORazepam 1MG TABLET ONE (22:19)
[2018-10-11] MEDS ORDERED: OLANZAPINE 10 MG TABLET ONE (22:20)
[2018-10-11] MEDS ORDERED: TRAZODONE 50MG TABLET ONE (22:20)
[2018-10-11] MEDS: LORazepam 1MG TABLET PO SCH (22:23)
[2018-10-11] MEDS: TRAZODONE 50MG TABLET PO SCH (22:24)
[2018-10-11] MEDS: OLANZAPINE 10 MG TABLET PO SCH (22:24)
--- NOTE | 2018-10-11 22:26 | NUR ---
TP RN: PACKET FAXED TO [facility] AND [facility]. NO [facility] PT. IS NOT UNDER 21 OR OVER 65.
--- NOTE | 2018-10-11 22:48 | NUR ---
TP RN: CONFIRMATION FAX RECEIVED FROM [facility] AND [facility].
--- NOTE | 2018-10-11 23:09 | NUR ---
Report from Rosanna. Pt sleeping at this time. Very drowsy, makes movement to touch. Not able to awake enough to take PO meds.
--- NOTE | 2018-10-11 23:10 | NUR ---
report given to arthur moses
--- NOTE | 2018-10-12 00:52 | NUR ---
Report to hai gibson
--- NOTE | 2018-10-12 00:54 | NUR ---
REPORT FROM KASEY POLLARD. THIS RN TO ASSUME CARE OF PT. ASLEEP COMFORTABLY ON [facility]. RR EVEN AND UNLABORED. NADN. ROLLER DOORS IN PLACE. SITTER IN HALLWAY.
--- NOTE | 2018-10-12 01:19 | NUR ---
PER LAST RN PT UNABLE TO AROUSE LONG ENOUGH TO TAKE NIGHT TIME MEDS. PT AWOKEN AT THIS TIME. REFUSING NIGHT TIME MEDICATIONS. OFFERED HOSPITAL BED AND DECLINED.
[2018-10-12] MEDS: OXCARBAZEPINE 300MG TABLET PO SCH ×3 (01:32→20:32)
[2018-10-12] MEDS: LAMOTRIGINE 100 MG TABLET PO SCH ×3 (01:32→20:32)
--- NOTE | 2018-10-12 02:49 | NUR ---
PT ASLEEP COMFORTABLY ON GURNEY. RR EVEN AND UNLABORED. NADN. ROLLER DOORS IN PLACE. SITTER IN HALLWAY.
--- NOTE | 2018-10-12 04:16 | NUR ---
PT ASLEEP COMFORTABLY ON GURNEY. RR EVEN AND UNLABORED. NADN. ROLLER DOORS IN PLACE. SITTER IN HALLWAY.
--- NOTE | 2018-10-12 05:01 | NUR ---
LAB ATTEMPTED TO DRAW BLOOD AT THIS TIME W/ HELP OF THIS RN. PT REFUSING AND STATING "NO WAKING UP."
--- NOTE | 2018-10-12 06:14 | NUR ---
PT ASLEEP COMFORTABLY ON GURNEY. RR EVEN AND UNLABORED. NADN. ROLLER DOORS IN PLACE. SITTER IN HALLWAY.
--- NOTE | 2018-10-12 06:58 | NUR ---
PT REPORT TO HARMONY POLLARD.
--- NOTE | 2018-10-12 07:03 | NUR ---
PT SLEEPING ON G[place]ON. [place]. SITTER REMAINS AT BEDSIDE. ROOM REMAINS SECURE.
--- NOTE | 2018-10-12 07:29 | NUR ---
LAB AND THIS RN ATTEMPTED TO DISCUSS W/ PT NEED FOR BLOOD DRAW. PT REFUSED BLOOD DRAW.
[2018-10-12] MEDS ORDERED: LORazepam 2 MG/ML, 1ML ONE (08:14)
--- NOTE | 2018-10-12 08:25 | NUR ---
TASK RN: FIRST CONTACT WITH PT. PIV ESTABLISHED. PT TOLERATED WITH NO COMPLICATIONS.
--- NOTE | 2018-10-12 08:25 | NUR ---
PT HAD ACTIVE SZ. PIV INITIATED. ERP DR. GERMAN MADE AWARE. MEDICATED PER AUG. MONITORS APPLIED. SZ PRECAUTIONS IN PLACE. SITTER REMAINS AT BEDSIDE. VSS.
--- NOTE | 2018-10-12 08:27 | NUR ---
ERP DR. GERMAN AWARE OF PT ANTI SZ MEDICATIONS AND THAT PT HAS REFUSED PO MEDICATIONS FOR UNKNOWN AMOUNT OF TIME PT REFUSED MEDS AT [facility] AND AT PT CARE HOME ADMINISTRATIVE ASSISTANT. AWAITING IV SZ MEDICATION.
[2018-10-12] MEDS ORDERED: SODIUM CHLORIDE FLUSH 10ML SYR IVF ONE (08:30)
[2018-10-12] MEDS ORDERED: LORazepam 2 MG/ML, 1ML IVPush ONE ×2 (08:30)
[2018-10-12] MEDS ORDERED: PHENYTOIN SODIUM 1,000 MG in SODIUM CHLORIDE 0.9% 100 ML IV ONE (08:30)
--- NOTE | 2018-10-12 08:32 | NUR ---
YELLOW SLIP WALKED TO PHARMACY FOR DILANTIN.
--- NOTE | 2018-10-12 08:36 | NUR ---
RAYMOND HERNÁNDEZ, PROPOSAL ENGINEER NOTIFIED OF SZ INCIDENT, POC W/ ERP DR. GERMAN FOR PIV W/ IV ATIVAN 1 MG, IV DILANTIN INFUSION, MONITORING, AND SZ PRECAUTIONS. PER PROPOSAL ENGINEER PT MAY NEED TO BE CONSULTED W/ NEUROLOGY.
[2018-10-12] MEDS ORDERED: BIOTIN PO SCH (09:00)
[2018-10-12] MEDS ORDERED: FILTER 0.22 MICRON FOR PHENYTOIN IV PRN (09:00)
--- NOTE | 2018-10-12 09:00 | NUR ---
PT POST SZ ATTEMPTED TO GET OOB W/ UNSTEADY GAIT. BECAME AGGRESSIVE, KICKING, GRABBING, PUSHING, AND SCREAMING. ATTEMPTED TO CALM PT. PT CONTINUED TO ATTEMPT TO KICK STAFF AND GRAB STAFF'S FACES AND KICK. PT PLACED IN 4 POINT RESTRAINTS.
--- NOTE | 2018-10-12 09:55 | NUR ---
PT AWAKE AND COOPERATIVE. SECURITY NOTIFIED TO REMOVE LUE AND RLE.
[2018-10-12] MEDS: SENNA/DOCUSATE TABLET PO SCH (10:01)
[2018-10-12] MEDS: LORazepam 1MG TABLET PO SCH ×2 (10:01→20:32)
--- NOTE | 2018-10-12 10:26 | NUR ---
LUE AND RLE RESTRAINTS REMOVED. PT REFUSED SIPS OF WATER AT THIS TIME.
[2018-10-12 10:31] LABS: ANION GAP 10 mmol/L (5-15); CALCIUM 8.3 mg/dL (8.5-10.1); CHLORIDE 106 mmol/L (98-107); CREATININE 0.71 mg/dL (0.55-1.02)
--- NOTE | 2018-10-12 11:40 | NUR ---
REPORT GIVEN TO SKY MARAVILLA RN. ALL QUESTIONS ANSWERED. AWAITING SITTER UPSTAIRS FOR PT TRANSPORT.
--- NOTE | 2018-10-12 11:52 | NUR ---
NEUROLOGY AT BEDSIDE.
--- NOTE | 2018-10-12 12:29 | NUR ---
ALL RESTRAINTS REMOVED. PT REMAINS ON MONITORS. SITTER REMAINS AT BEDSIDE.
[2018-10-12 15:35] VITALS: BP 119/76
[2018-10-12 18:55] VITALS: BP 122/63
[2018-10-12] MEDS: TRAZODONE 50MG TABLET PO SCH (20:32)
[2018-10-12] MEDS: OLANZAPINE 10 MG TABLET PO SCH (20:33)
[2018-10-13 00:35] VITALS: BP 119/67
[2018-10-13 07:39] VITALS: BP 121/69
[2018-10-13] MEDS: SENNA/DOCUSATE TABLET PO SCH (10:02)
[2018-10-13] MEDS: LORazepam 1MG TABLET PO SCH ×2 (10:10→21:30)
[2018-10-13] MEDS: OXCARBAZEPINE 300MG TABLET PO SCH ×2 (10:10→21:30)
[2018-10-13] MEDS: LAMOTRIGINE 100 MG TABLET PO SCH ×2 (10:10→21:30)
[2018-10-13 13:48] VITALS: BP 119/72
[2018-10-13] MEDS ORDERED: ZIPRASIDONE 20 MG INJ IM ONE (15:58)
[2018-10-13] MEDS: ZIPRASIDONE 20 MG INJ IM PRN (16:05)
[2018-10-13 19:47] VITALS: BP 119/75
[2018-10-13] MEDS: TRAZODONE 50MG TABLET PO SCH (21:30)
[2018-10-13] MEDS: OLANZAPINE 10 MG TABLET PO SCH (21:30)
[2018-10-14 02:00] VITALS: BP 106/71
[2018-10-14 08:00] VITALS: BP 105/54
[2018-10-14] MEDS: SENNA/DOCUSATE TABLET PO SCH (10:10)
[2018-10-14] MEDS: LORazepam 1MG TABLET PO SCH ×2 (10:12→21:36)
[2018-10-14] MEDS: LAMOTRIGINE 100 MG TABLET PO SCH ×2 (10:13→21:35)
[2018-10-14] MEDS: OXCARBAZEPINE 300MG TABLET PO SCH ×2 (10:14→21:35)
[2018-10-14 13:04] VITALS: BP 113/59
[2018-10-14] MEDS ORDERED: DEXTROSE 50%, 50ML SYRINGE IVPush PRN (14:00)
[2018-10-14] MEDS ORDERED: GLUCAGON 1 MG IM PRN (14:00)
[2018-10-14] MEDS ORDERED: DEXTROSE 4 GM TAB.CHEW PO PRN (14:00)
[2018-10-14] MEDS: D5%-0.45% NACL 1,000 ML IV SCH ×2 (14:53→23:16)
[2018-10-14] MEDS: ZIPRASIDONE 20 MG INJ IM PRN (17:46)
[2018-10-14 18:28] VITALS: BP 103/57
[2018-10-14] MEDS: TRAZODONE 50MG TABLET PO SCH (21:35)
[2018-10-14] MEDS: OLANZAPINE 10 MG TABLET PO SCH (21:35)
[2018-10-14] MEDS: SODIUM CHLORIDE FLUSH 10ML SYR IVF SCH (21:36)
[2018-10-15 00:22] VITALS: BP 137/78
[2018-10-15] MEDS: D5%-0.45% NACL 1,000 ML IV SCH ×2 (06:11→15:47)
[2018-10-15] MEDS: LAMOTRIGINE 100 MG TABLET PO SCH ×2 (08:32→21:33)
[2018-10-15] MEDS: LORazepam 1MG TABLET PO SCH ×2 (08:32→21:33)
[2018-10-15] MEDS: OXCARBAZEPINE 300MG TABLET PO SCH ×2 (08:32→21:34)
[2018-10-15] MEDS: SODIUM CHLORIDE FLUSH 10ML SYR IVF SCH ×2 (08:32→21:36)
[2018-10-15] MEDS: SENNA/DOCUSATE TABLET PO SCH (08:33)
[2018-10-15 08:36] VITALS: BP 133/81
[2018-10-15] MEDS ORDERED: LORazepam 2 MG/ML, 1ML IVPush PRN (12:00)
[2018-10-15] MEDS: OLANZAPINE 5 MG TABLET PO SCH ×2 (12:57→21:33)
[2018-10-15 13:46] VITALS: BP 102/69
[2018-10-15 13:50] LABS: ANION GAP 8 mmol/L (5-15); CALCIUM 8.6 mg/dL (8.5-10.1); CHLORIDE 108 mmol/L (98-107)
[2018-10-15] MEDS ORDERED: POTASSIUM CHLORIDE 20 MEQ TAB.ER.PRT PO ONE (17:00)
[2018-10-15 19:33] VITALS: BP 125/78
[2018-10-15] MEDS: TRAZODONE 50MG TABLET PO SCH (21:34)
[2018-10-16] MEDS: D5%-0.45% NACL 1,000 ML IV SCH ×2 (00:44→07:03)
[2018-10-16 01:44] VITALS: BP 114/70
[2018-10-16 07:10] VITALS: BP 116/73
[2018-10-16] MEDS: OXCARBAZEPINE 300MG TABLET PO SCH ×2 (08:59→21:41)
[2018-10-16] MEDS: LAMOTRIGINE 100 MG TABLET PO SCH ×2 (08:59→21:41)
[2018-10-16] MEDS: LORazepam 1MG TABLET PO SCH ×2 (08:59→21:41)
[2018-10-16] MEDS: OLANZAPINE 5 MG TABLET PO SCH ×2 (08:59→21:41)
[2018-10-16] MEDS: SODIUM CHLORIDE FLUSH 10ML SYR IVF SCH ×2 (09:00→21:42)
[2018-10-16] MEDS: SENNA/DOCUSATE TABLET PO SCH (09:00)
[2018-10-16 15:45] VITALS: BP 110/67
[2018-10-16] MEDS: ZIPRASIDONE 20 MG INJ IM PRN (18:30)
[2018-10-16] MEDS: TRAZODONE 50MG TABLET PO SCH (21:42)
[2018-10-16 21:57] VITALS: BP 113/74
[2018-10-17 02:30] VITALS: BP 107/64
[2018-10-17] MEDS: LORazepam 1MG TABLET PO SCH ×2 (08:30→20:23)
[2018-10-17] MEDS: OLANZAPINE 5 MG TABLET PO SCH ×2 (08:30→20:23)
[2018-10-17] MEDS: SENNA/DOCUSATE TABLET PO SCH (08:31)
[2018-10-17] MEDS: SODIUM CHLORIDE FLUSH 10ML SYR IVF SCH ×2 (08:31→20:24)
[2018-10-17] MEDS: OXCARBAZEPINE 300MG TABLET PO SCH ×2 (08:31→20:23)
[2018-10-17] MEDS: LAMOTRIGINE 100 MG TABLET PO SCH ×2 (08:31→20:23)
[2018-10-17 09:16] VITALS: BP 119/77
[2018-10-17 16:02] VITALS: BP 115/73
[2018-10-17] MEDS ORDERED: ENOXAPARIN 40 MG/0.4 ML SQ SCH (17:00)
[2018-10-17 19:39] LABS: CULTURE INDICATED? YES; MICROSCOPIC INDICATED
[2018-10-17 19:54] VITALS: BP 112/72
[2018-10-17] MEDS: TRAZODONE 50MG TABLET PO SCH (20:24)
[2018-10-18 01:09] VITALS: BP 125/80
[2018-10-18 01:18] VITALS: BP 104/68
[2018-10-18] MEDS: SODIUM CHLORIDE FLUSH 10ML SYR IVF SCH (09:00)
[2018-10-18] MEDS: LORazepam 1MG TABLET PO SCH (09:38)
[2018-10-18] MEDS: LAMOTRIGINE 100 MG TABLET PO SCH (09:38)
[2018-10-18] MEDS: SENNA/DOCUSATE TABLET PO SCH (09:38)
[2018-10-18] MEDS: OXCARBAZEPINE 300MG TABLET PO SCH (09:38)
[2018-10-18] MEDS: OLANZAPINE 5 MG TABLET PO SCH (09:38)
[2018-10-18 09:47] VITALS: BP 120/80
[2018-10-18 09:53] LABS: BASOPHILS # (AUTO) 0.04 x10^3/uL (0-0.1); BASOPHILS % (AUTO) 1 % (0-1); EOSINOPHILS # (AUTO) 0.08 x10^3/uL (0-0.4); EOSINOPHILS % (AUTO) 1 % (1-7); LYMPHOCYTES # (AUTO) 1.79 x10^3/uL (1-3.4); LYMPHOCYTES % (AUTO) 30 % (22-44); MD NO; MEAN CORPUSCULAR HEMOGLOBIN 30.9 pg (27.0-34.8); MEAN CORPUSCULAR VOLUME 90.8 fL (80-100); MEAN PLATELET VOLUME 6.9 fL (7.4-10.4); MONOCYTES # (AUTO) 0.43 x10^3/uL (0.2-0.8); MONOCYTES % (AUTO) 7 % (2-9); NEUTROPHILS # (AUTO) 3.72 x10^3/uL (1.8-6.8); NEUTROPHILS % (AUTO) 61 % (42-75); PLATELET COUNT 370 x10^3/uL (130-400); RED BLOOD COUNT 5.16 x10^6/uL (3.82-5.3); RED CELL DISTRIBUTION WIDTH 12.4 % (9.6-15.2)
[2018-10-18 09:58] LABS: ALBUMIN 3.8 g/dL (3.4-5.0); CREATININE 0.79 mg/dL (0.55-1.02)
[2018-10-18 10:05] LABS: ANION GAP 6 mmol/L (5-15); CHLORIDE 112 mmol/L (98-107)
[2018-10-18] MEDS ORDERED: OLAN5TAB9 PO (12:41)
[2018-10-18 13:06] VITALS: BP 116/64
== END 2018-10-18 14:50 | DRG 883 ==
LOC: ED 20:40 → EDIP 20:41 → ED 21:40 → 4WST 10-12 12:56
PROVIDERS: ADMIT Internal Medicine; ATTEND Internal Medicine
DX: F63.81 Intermittent explosive disorder (principal); E87.1 Hypo-osmolality and hyponatremia; E87.2 Acidosis; G93.40 Encephalopathy, unspecified; E16.2 Hypoglycemia, unspecified; F84.0 Autistic disorder; F20.9 Schizophrenia, unspecified; F31.9 Bipolar disorder, unspecified; F60.9 Personality disorder, unspecified; F79 Unspecified intellectual disabilities; G40.909 Epilepsy, unspecified, not intractable, without status epilepticus; I10 Essential (primary) hypertension; I45.81 Long QT syndrome; Z78.1 Physical restraint status; Z91.018 Allergy to other foods; Z88.8 Allergy status to other drugs, medicaments and biological substances
CPT/HCPCS: 36415; 80048; 80156; 80157; 80175; 80307; 80329; 81001; 82040; 82962; 83735; 84703; 85025; 87086; 93005; 95819; 96372; 96374; 96375; G0378; J1165; J1650; J3486; G0480; J2060

== ENCOUNTER 2018-10-11 18:21 | Emergency (ER) | payer MEDICAID ==
[2018-10-11] MEDS ORDERED: ZIPRASIDONE 20 MG INJ IM ONE (18:55)
[2018-10-11] MEDS ORDERED: DOCU100C33 PO (19:08)
[2018-10-11] MEDS ORDERED: LORA0.5T PO (19:15)
[2018-10-11] MEDS ORDERED: OXCA300T19 PO (19:15)
[2018-10-11] MEDS ORDERED: OLAN10TA9 PO (19:15)
[2018-10-11] MEDS ORDERED: LORA1TAB PO (19:15)
[2018-10-11] MEDS ORDERED: NYST15OI TP (19:15)
[2018-10-11] MEDS ORDERED: LAMO100T PO (19:15)
[2018-10-11] MEDS ORDERED: BIOT1CAP3 PO (19:15)
[2018-10-11] MEDS ORDERED: TRAZ50TA66 PO (19:15)
== END 2018-10-11 18:24 ==
LOC: ED 18:22
DX: R68.89 Other general symptoms and signs (principal); Z53.21 Procedure and treatment not carried out due to patient leaving prior to being seen by health care provider

== ENCOUNTER 2018-11-14 17:08 | Emergency (ER) | payer MEDICAID ==
[~2018-11-14] VITALS: Ht 160 cm; Wt 73.0 kg
[~2018-11-14 17:08] MED LIST changes: +BIOT1CAP3 PO; +DOCU100C33 PO; +LAMO100T PO; +LORA0.5T PO; +NYST15OI TP; +OLAN10TA9 PO; +TRAZ50TA66 PO
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
[2018-11-14] MEDS ORDERED: OLAN10TA9 PO (17:23)
[2018-11-14] MEDS ORDERED: LURA40TA PO (17:24)
--- NOTE | 2018-11-14 18:03 | NUR ---
DRIED STOOL CLEANED FROM PATIENT'S SKIN. WARM BLANKET PROVIDED. PT SLEEPING. CONTINUOUS SPO2 MONITOR REMAINS IN PLACE W/ SPO2=98% ON ROOM AIR. PATIENT'S AIRWAY REMAINS PATENT. CAREGIVER AT BEDSIDE.
--- NOTE | 2018-11-14 18:45 | NUR ---
PERSONAL DEVELOPMENT COACH, QUEENIE, AT BEDSIDE DISCUSSING POC WITH CAREGIVER.
[2018-11-14 18:51] LABS: ALANINE AMINOTRANSFERASE 35 U/L (12-78); ALBUMIN 4.1 g/dL (3.4-5.0); ANION GAP 9 mmol/L (5-15); CHLORIDE 105 mmol/L (98-107); CREATININE 0.81 mg/dL (0.55-1.02)
[2018-11-14 18:52] LABS: SALICYLATE LEVEL < 1.7 mg/dL (2.8-20.0)
[2018-11-14 18:53] LABS: ALKALINE PHOSPHATASE 88 U/L (45-117); BILIRUBIN,TOTAL 0.3 mg/dL (0.2-1.0); TOTAL PROTEIN 7.7 g/dL (6.4-8.2)
[2018-11-14 18:55] LABS: ACETAMINOPHEN < 2 mcg/mL (10-30)
--- NOTE | 2018-11-14 19:06 | NUR ---
SBAR HAND-OFF GIVEN TO ATUL ALAS.
[2018-11-14 19:17] LABS: BASOPHILS # (AUTO) 0.03 x10^3/uL (0-0.1); BASOPHILS % (AUTO) 0 % (0-1); EOSINOPHILS # (AUTO) 0.02 x10^3/uL (0-0.4); EOSINOPHILS % (AUTO) 0 % (1-7); LYMPHOCYTES # (AUTO) 1.31 x10^3/uL (1-3.4); LYMPHOCYTES % (AUTO) 11 % (22-44); MD NO; MEAN CORPUSCULAR HEMOGLOBIN 31.3 pg (27.0-34.8); MEAN CORPUSCULAR HGB CONC 33.8 g/dL (32.4-35.8); MEAN CORPUSCULAR VOLUME 92.8 fL (80-100); MONOCYTES # (AUTO) 0.63 x10^3/uL (0.2-0.8); MONOCYTES % (AUTO) 5 % (2-9); NEUTROPHILS % (AUTO) 84 % (42-75); PLATELET COUNT 336 x10^3/uL (130-400); RED BLOOD COUNT 4.74 x10^6/uL (3.82-5.3); RED CELL DISTRIBUTION WIDTH 12.1 % (9.6-15.2)
--- NOTE | 2018-11-14 19:18 | NUR ---
RECEIVED BS REPORT FROM ATUL NOONAN TO ASSUME CARE OF PT. PT. HAS BEEN REMOVED FROM RESTRAINTS AND IS REQUESTING TO GO HOME; WILL F/U WITH THIS. PT. HAS ALL MONITORS IN PLACE AND IS CONVERSING WITH THIS RN. PT. SLOW TO RESPOND BUT IS APPROPRIATE. ALL SAFETY MEASURES OBSERVED.
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
--- NOTE | 2018-11-14 20:10 | NUR ---
STILL AWAITNG RESIDENTIAL MEMBER TO RETURN FOR PT. RIDE HOME. PT. HAS AN ALARM IN PLACE PT. IS UNSTEADY ON FEET AND CONTINUES TO ATTEMPT TO GET OUT OF BED.
[2018-11-14] MEDS ORDERED: ONDANSETRON ODT 4 MG ONE (20:15)
--- NOTE | 2018-11-14 20:18 | NUR ---
INTERMEDIATE MEMBER NOW IN ROOM WITH PT. D/C INSTRUCTIONS GIVEN TO PT. AMD INTERMEDIATE MEMBER. THEY VERBALZIED UNDERSTANDING OF INSTRUCITONS.
--- NOTE | 2018-11-14 20:19 | NUR ---
PANTS PROVIDED TO PT. PT. DID NOT HAVE ANY.
[2018-11-14 20:24] VITALS: BP 141/84
--- NOTE | 2018-11-14 20:26 | NUR ---
LATE ENTRY FOR 2016: PT. VOMITED X 2 ONCE STAFF MEMBER FROM CARE HOME ARRIVED. VERBAL ORDER RECEIVED FROM DR. MENDOZA AND 4MG ODT ZOFRAN ADMIN PER VERBAL ORDER.
== END 2018-11-14 20:25 | disposition home or self-care (01) ==
LOC: ED 18:31
DX: F43.24 Adjustment disorder with disturbance of conduct (principal); G40.909 Epilepsy, unspecified, not intractable, without status epilepticus; F31.9 Bipolar disorder, unspecified; F79 Unspecified intellectual disabilities; F20.9 Schizophrenia, unspecified; I10 Essential (primary) hypertension
CPT/HCPCS: 36415; 80053; 80307; 85025; 99283; 99284

== ENCOUNTER 2019-08-12 17:57 | Inpatient (IN) | payer MEDICAID ==
[~2019-08-12] VITALS: Ht 167.6 cm; Wt 91.3 kg
[~2019-08-12 17:57] MED LIST changes: +CARB-136 OT; +ELECTROLYTE; -LAMO100T PO; +LAMO100T8 PO; +LURA40TA PO; +SODI1TAB15 PO; -TRAZ-137 PO; +TRAZ-175 PO
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
[2019-08-12] MEDS ORDERED: hydrOXyzine 50MG TABLET ONE (20:33)
--- NOTE | 2019-08-12 20:35 | NUR ---
PT WANDERING SIERRA. NONCOMPLIANT W/ STAFF. GIVEN ATARAX. HER STAFF LEFT TO GO TO LOBBY. PT TALKED INTO SITTING ON STRETCHER.
--- NOTE | 2019-08-12 20:36 | NUR ---
PT REFUSING TO GIVE UA.
[2019-08-12 20:50] LABS: BASOPHILS # (AUTO) 0.06 x10^3/uL (0-0.1); BASOPHILS % (AUTO) 1 % (0-1); EOSINOPHILS # (AUTO) 0.07 x10^3/uL (0-0.4); EOSINOPHILS % (AUTO) 1 % (1-7); LYMPHOCYTES # (AUTO) 2.17 x10^3/uL (1-3.4); LYMPHOCYTES % (AUTO) 24 % (22-44); MD NO; MEAN CORPUSCULAR HEMOGLOBIN 30.9 pg (27.0-34.8); MEAN CORPUSCULAR HGB CONC 34.1 g/dL (32.4-35.8); MEAN CORPUSCULAR VOLUME 90.7 fL (80-100); MEAN PLATELET VOLUME 6.4 fL (7.4-10.4); MONOCYTES # (AUTO) 0.62 x10^3/uL (0.2-0.8); MONOCYTES % (AUTO) 7 % (2-9); NEUTROPHILS # (AUTO) 6.03 x10^3/uL (1.8-6.8); NEUTROPHILS % (AUTO) 67 % (42-75); PLATELET COUNT 378 x10^3/uL (130-400); RED BLOOD COUNT 4.45 x10^6/uL (3.82-5.3); RED CELL DISTRIBUTION WIDTH 12.5 % (9.6-15.2)
[2019-08-12 20:59] LABS: ALANINE AMINOTRANSFERASE 31 U/L (12-78); ANION GAP 9 mmol/L (5-15); CALCIUM 8.8 mg/dL (8.5-10.1); CHLORIDE 96 mmol/L (98-107); CREATININE 0.55 mg/dL (0.55-1.02)
[2019-08-12 21:04] LABS: ALKALINE PHOSPHATASE 80 U/L (45-117); BILIRUBIN,TOTAL 0.5 mg/dL (0.2-1.0); TOTAL PROTEIN 7.4 g/dL (6.4-8.2)
[2019-08-12 21:52] LABS: MICROSCOPIC NOT IND
--- NOTE | 2019-08-12 21:54 | NUR ---
LAW IN ROOM. PT TBADM. PT URINATED ON FLOOR BC WAS MAD. WALKED TO BATHROOM. UA SENT.
[2019-08-12 21:56] LABS: CULTURE INDICATED? NO
[2019-08-12 22:00] LABS: POTASSIUM,URINE RANDOM 3 mmol/L; SODIUM,URINE RANDOM 9 mmol/L
[2019-08-12 22:03] LABS: CHLORIDE,URINE RANDOM < 10 mmol/L
[2019-08-12] MEDS ORDERED: LORA-446 PO (22:27)
[2019-08-12] MEDS ORDERED: LAMO100T8 PO (22:27)
--- NOTE | 2019-08-12 22:27 | NUR ---
PIV EST. AWAITING BED. MED REC UPDATED. STAFF AT [facility]. PT COMPLIANT.
--- NOTE | 2019-08-12 22:39 | NUR ---
report to holley gibson. as
[2019-08-12] MEDS ORDERED: SODIUM CHLORIDE FLUSH 10ML SYR IVF ONE (23:00)
[2019-08-12] MEDS ORDERED: ACETAMINOPHEN 325 MG TABLET PO PRN (23:30)
[2019-08-12] MEDS ORDERED: ENALAPRILAT 1.25 MG/ML, 2ML IVPush PRN (23:30)
[2019-08-12] MEDS ORDERED: ONDANSETRON 2MG/ML, 2ML IVPush PRN (23:30)
[2019-08-13] MEDS: LORazepam 1MG TABLET PO SCH ×4 (00:07→19:59)
[2019-08-13] MEDS: LAMOTRIGINE 100 MG TABLET PO SCH ×3 (00:07→19:59)
[2019-08-13] MEDS: TRAZODONE 50MG TABLET PO SCH ×2 (00:07→19:59)
[2019-08-13] MEDS: OXCARBAZEPINE 300MG TABLET PO SCH ×3 (00:07→19:59)
[2019-08-13 00:31] VITALS: BP 115/73
[2019-08-13 02:42] LABS: OSMOLALITY,URINE 58 mOsm/kg (500-850)
[2019-08-13 02:47] VITALS: BP 108/55
[2019-08-13 05:35] LABS: CHLORIDE 105 mmol/L (98-107)
[2019-08-13 05:51] LABS: ANION GAP 7 mmol/L (5-15); CALCIUM 8.9 mg/dL (8.5-10.1); CREATININE 0.71 mg/dL (0.55-1.02)
[2019-08-13 07:11] VITALS: BP 108/62
[2019-08-13] MEDS ORDERED: SODIUM CL PO SCH (09:00)
[2019-08-13] MEDS: SENNA/DOCUSATE TABLET PO SCH ×2 (09:00→10:06)
[2019-08-13] MEDS ORDERED: POTASSIUM CHLORIDE PO SCH (09:00)
[2019-08-13] MEDS ORDERED: LAMOTRIGINE 100 MG TABLET PO SCH (09:00)
[2019-08-13] MEDS: OLANZAPINE 10 MG TABLET PO SCH (10:05)
[2019-08-13 12:38] VITALS: BP 119/72
[2019-08-13 19:29] VITALS: BP 110/66
[2019-08-14 01:57] VITALS: BP 109/68
[2019-08-14 05:51] LABS: ANION GAP 10 mmol/L (5-15); CALCIUM 8.9 mg/dL (8.5-10.1); CHLORIDE 106 mmol/L (98-107); CREATININE 0.76 mg/dL (0.55-1.02)
[2019-08-14] MEDS: SENNA/DOCUSATE TABLET PO SCH (09:00)
[2019-08-14 09:42] VITALS: BP 123/78
[2019-08-14] MEDS: LORazepam 1MG TABLET PO SCH (09:53)
[2019-08-14] MEDS: OLANZAPINE 10 MG TABLET PO SCH (09:53)
[2019-08-14] MEDS: LAMOTRIGINE 100 MG TABLET PO SCH (09:53)
[2019-08-14] MEDS: OXCARBAZEPINE 300MG TABLET PO SCH (09:53)
[2019-08-14 13:23] VITALS: BP 124/79
== END 2019-08-14 15:08 | disposition home or self-care (01) | DRG 426 ==
LOC: ED 21:28 → EDIP 22:21 → 3N 23:20
PROVIDERS: ADMIT Family Medicine; ATTEND Family Medicine
DX: E87.1 Hypo-osmolality and hyponatremia (principal); F31.9 Bipolar disorder, unspecified; F60.9 Personality disorder, unspecified; F63.81 Intermittent explosive disorder; F79 Unspecified intellectual disabilities; F84.0 Autistic disorder; G40.909 Epilepsy, unspecified, not intractable, without status epilepticus; I10 Essential (primary) hypertension; Z88.8 Allergy status to other drugs, medicaments and biological substances; Z91.018 Allergy to other foods
CPT/HCPCS: 36415; 70450; 80048; 80053; 81003; 82140; 82436; 83036; 83735; 83930; 83935; 84100; 84133; 84300; 84443; 84703; 85025; 86592; 87806; 99285; G0378; G0475; Q0177

== ENCOUNTER 2019-10-22 20:07 | Emergency (ER) | payer MEDICAID ==
[~2019-10-22] VITALS: Ht 160 cm; Wt 75.0 kg
[~2019-10-22 20:07] MED LIST changes: +LORA-446 PO
[2019-10-22] MEDS ORDERED: MECLIZINE CHEWABLE 25 MG TAB ONE (20:24)
--- NOTE | 2019-10-22 20:27 | NUR ---
PLACED ON VITAL SIGNS AND FONDANT COOKER, MEDICATED PER MAR.
[2019-10-22] MEDS ORDERED: PLEASE ENTER HEIGHT AND WEIGHT MC SCH (20:30)
[2019-10-22] MEDS ORDERED: MECLIZINE CHEWABLE 25 MG TAB PO ONE (20:30)
[2019-10-22 21:48] VITALS: BP 110/61
--- NOTE | 2019-10-22 22:04 | NUR ---
PT READY FOR DISCHARGE, RN CALL [facility] SPOKE WITH STAFF ELAYNE THAT STATED THEY WILL COME PICK HER UP.
== END 2019-10-22 22:07 | disposition home or self-care (01) ==
LOC: ED 21:00
DX: R42 Dizziness and giddiness (principal); I48.91 Unspecified atrial fibrillation
CPT/HCPCS: 93005; 99283

== ENCOUNTER 2021-01-28 20:35 | Emergency (ER) | payer MEDICAID ==
[~2021-01-28] VITALS: Ht 165.1 cm; Wt 84.0 kg
[~2021-01-28 20:35] MED LIST changes: +OLAN10TA69 PO; -OLAN10TA9 PO; +OLAN5TAB69 PO; -OLAN5TAB9 PO
[2021-01-28 20:41] VITALS: BP 129/53
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
--- NOTE | 2021-01-28 23:14 | NUR ---
Mom on way to pickling operator pt
== END 2021-01-28 23:16 | disposition home or self-care (01) ==
LOC: ED 21:35
DX: S09.90XA Unspecified injury of head, initial encounter (principal); I10 Essential (primary) hypertension; G40.909 Epilepsy, unspecified, not intractable, without status epilepticus; W18.30XA Fall on same level, unspecified, initial encounter; Y93.89 Activity, other specified; Y92.89 Other specified places as the place of occurrence of the external cause; Y99.8 Other external cause status
CPT/HCPCS: 70450; 72110; 99284